=== PATIENT | female | born 2000 | race Caucasian/White ===

== ENCOUNTER 2021-11-16 18:33 | Emergency (ER) | payer MEDICAID ==
[~2021-11-16] VITALS: Ht 170.2 cm; Wt 64.9 kg
[2021-11-16 18:40] VITALS: BP_SYST 157
--- NOTE | 2021-11-16 18:40 | NUR ---
Pt. came in byself with c/o chestpain X 2 hours, rates it 6/ but says tolerable, non radiating, points to entire chest area and epigastric area, denies DUVAL or blurred vision, mild edema to feet, 35 1/7 weeks with an uneventful ,
[2021-11-16 19:07] LABS: BILIRUBIN,URINE NEGATIVE (NEGATIVE); CLARITY/URINE CLEAR (CLEAR); COLOR,URINE YELLOW (YELLOW); GLUCOSE,URINE NEGATIVE (NEGATIVE); KETONES,URINE NEGATIVE (NEGATIVE); LEUKOCYTE ESTERASE ,URINE NEGATIVE (NEGATIVE); NITRITE, URINE NEGATIVE (NEGATIVE); PH,URINE 6.5 (5.0-8.0); PROTEIN URINE NEGATIVE (NEGATIVE); UROBILINOGEN,URINE 0.2 (0.2-1.0)
[2021-11-16 19:14] LABS: BLOOD, URINE TRACE (NEGATIVE)
[2021-11-16 19:35] LABS: BACTERIA,URINE FEW /HPF (None Seen); WBC,URINE 0-3 /HPF (0-3)
[2021-11-16 19:41] LABS: BASOPHILS # (AUTO) 0.1 K/uL (0.0-0.2); BASOPHILS % (AUTO) 0.5 % (0.0-2.0); EOSINOPHILS # (AUTO) 0.1 K/uL (0.0-0.4); EOSINOPHILS % (AUTO) 0.7 % (0.0-4.0); HEMATOCRIT 29.6 % (36-48); HEMOGLOBIN 9.9 g/dL (12.0-16.0); LYMPHOCYTES # (AUTO) 1.7 K/uL (1.0-5.5); LYMPHOCYTES % (AUTO) 16.1 % (20.5-51.5); MEAN CORPUSCULAR HEMOGLOBIN 28 pg (27-31); MEAN CORPUSCULAR HGB CONC 33 % (32-36); MEAN CORPUSCULAR VOLUME 85 fL (79.0-98.0); MONOCYTES # (AUTO) 0.9 K/uL (0.0-1.0); MONOCYTES % (AUTO) 8.1 % (1.7-9.3); NEUTROPHILS # (AUTO) 7.9 K/uL (1.8-7.7); NEUTROPHILS % (AUTO) 74.6 % (40.0-70.0); PLATELET COUNT (AUTO) 250 K/uL (130-430); RED BLOOD CELL COUNT(AUTO) 3.51 MIL/uL (4.2-6.2); RED CELL DISTRIBUTION WIDTH 13.1 % (9.0-15.0); WHITE BLOOD COUNT (AUTO) 10.6 K/uL (4.8-10.8)
[2021-11-16 20:02] LABS: ANION GAP 8 (5-15); CALCIUM 9.1 mg/dL (8.4-11.0); CHLORIDE 100 mmol/L (98-107); CREATININE 0.53 mg/dL (0.55-1.30); GLUCOSE 96 mg/dL (70-99); POTASSIUM 3.6 mmol/L (3.5-5.1); SODIUM SERUM 135 mmol/L (136-145); UREA NITROGEN, BLOOD 7 mg/dL (8-21)
[2021-11-16 20:03] LABS: GFR AFRICAN AMERICAN 186 mL/min (>90)
--- NOTE | 2021-11-16 20:10 | NUR ---
Pt is resting comfortably in bed, sitting in high fowlers position for comfort. No acute signs of distress. Breathing adequately on RA. VSS at this time.
[2021-11-16 20:11] LABS: ALANINE AMINOTRANSFERASE 17 U/L (12-78); ALBUMIN 2.8 g/dL (3.4-4.8); ASPARTATE AMINOTRANSFERASE 21 U/L (10-37); TOTAL BILIRUBIN 0.2 mg/dL (0.0-1.0)
--- NOTE | 2021-11-16 20:29 | NUR ---
Lab called in [facility] for D-DIMER OF 0300. MD Sarmiento made aware.
[2021-11-16] MEDS ORDERED: MAG HYDROX/AL HYDROX/SIMETH 30 ML, DICYCLOMINE HCL 20 MG, LIDOCAINE VISCOUS 2% 15ML (PO... PO ONE ×3 (20:45)
--- NOTE | 2021-11-16 20:50 | NUR ---
#20 gauge angiocath placed to L AC. Use of asceptic technique. Opsite placed over site. Blood return noted. Blood for lab drawn from site. Flushed with 10 cc of normal saline. No evidence of infiltration noted. Patient tolerated well.
--- NOTE | 2021-11-16 21:10 | NUR ---
Written consent received/signed for CT of chest w/Contrast.
[2021-11-16] MEDS ORDERED: NACL 0.9% 1,000 ML IV ONE (21:15)
[2021-11-16] MEDS ORDERED: IOHEXOL 350 mgI/mL, 150 ML INFUS..BTL IV ONE (21:27)
--- NOTE | 2021-11-16 22:00 | NUR ---
Pt resting comfortably in bed. Appears in no acute distress. VSS. No reports of chest pain/discomfort at this time.
--- NOTE | 2021-11-17 00:11 | NUR ---
Patient given written and verbal discharge instructions and verbalizes understanding. ER MD Rinaldi discussed with patient the results and treatment provided. Patient in stable condition. ID arm band removed. IV catheter removed intact and dressing applied, no active bleeding. Patient educated on pain management and to follow up with PMD. VSS for discharge. Opportunity for questions provided and answered. Medication side effect fact sheet provided.
[2021-11-17 00:59] VITALS: BP_SYST 115
== END 2021-11-17 00:11 | disposition home or self-care (01) ==
LOC: SED 18:33
DX: O26.893 Other specified pregnancy related conditions, third trimester (principal); R10.13 Epigastric pain; R07.89 Other chest pain; Z3A.35 35 weeks gestation of pregnancy
CPT/HCPCS: 36415; 71275; 76376; 80053; 81000; 83690; 83880; 84484; 85025; 85379; 93005; 96360; 99285; J2001; J7030; Q9967